=== PATIENT | female | born 1990 | race Caucasian/White ===

== ENCOUNTER 2016-10-23 02:26 | Emergency (ER) | payer SELFPAY ==
[~2016-10-23] VITALS: Ht 167.6 cm; Wt 113.4 kg
[2016-10-23 02:55] VITALS: BP 162/89
[2016-10-23 04:44] LABS: BASO % 0 % (0-3); EOS % 2 % (0-3); HEMATOCRIT 39.8 % (36.0-47.0); HEMOGLOBIN 12.4 g/dL (12.0-15.5); LYMPH # 3.8 x10^3/uL (1.0-4.8); LYMPH % 44 % (24-48); MEAN CORPUSCULAR HEMOGLOBIN 25 pg (25-35); MEAN CORPUSCULAR HGB CONC 31 g/dL (31-37); MEAN CORPUSCULAR VOLUME 80 fL (79-100); MONO % 13 % (0-9); NEUT % 41 % (31-73); PLATELET COUNT 173 x10^3/uL (140-400); RED BLOOD COUNT 4.95 x10^6/uL (3.50-5.40); RED CELL DISTRIBUTION WIDTH 16.1 % (11.5-14.5); WHITE BLOOD COUNT 8.8 x10^3/uL (4.0-11.0)
[2016-10-23] MEDS ORDERED: IV NORMAL SALINE 1000ML BAG 1,000 ML IV ONE (04:45)
[2016-10-23] MEDS ORDERED: DIPHENHYDRAMINE 50 MG/ML VIAL IVP ONE (04:45)
[2016-10-23] MEDS ORDERED: METOCLOPRAMIDE HCL 10 MG/2 ML VIAL. IV ONE (04:45)
[2016-10-23 04:50] LABS: BILIRUBIN,URINE NEGATIVE (NEG); GLUCOSE,URINE NEGATIVE (NEG); NITRITE,URINE NEGATIVE (NEG); PH,URINE 7.5; PROTEIN,URINE NEGATIVE (NEG-TRACE); UROBILINOGEN,URINE 0.2 mg/dL (0.2 mg/dL)
[2016-10-23 04:54] LABS: ANION GAP 4 (6-14); BLOOD UREA NITROGEN 11 mg/dL (7-20); CALCIUM 8.9 mg/dL (8.5-10.1); CARBON DIOXIDE 29 mmol/L (21-32); CHLORIDE 107 mmol/L (98-107); CREATININE 0.7 mg/dL (0.6-1.0); GFR 101.1; GLUCOSE 85 mg/dL (70-99); POTASSIUM 4.3 mmol/L (3.5-5.1); SODIUM 140 mmol/L (136-145)
[2016-10-23] MEDS ORDERED: DIPHENHYDRAMINE 50 MG/ML VIAL IM ONE (05:00)
[2016-10-23] MEDS ORDERED: METOCLOPRAMIDE HCL 10 MG/2 ML VIAL. IM ONE (05:00)
[2016-10-23 05:01] LABS: ALBUMIN 3.4 g/dL (3.4-5.0); ALK PHOS 73 U/L (46-116); ALT (SGPT) 17 U/L (14-59); AST (SGOT) 13 U/L (15-37); DIRECT BILIRUBIN < 0.1 mg/dL (0.0-0.2); TOTAL BILIRUBIN 0.1 mg/dL (0.2-1.0); TOTAL PROTEIN 6.9 g/dL (6.4-8.2)
[2016-10-23 05:09] LABS: BACTERIA,URINE FEW /HPF (0-FEW); RBC,URINE 0 /HPF (0-2); SQUAMOUS EPITHELIAL CELL,UR MOD /LPF
--- NOTE | 2016-10-23 07:09 | PHYS DOC ---
Past Medical History Past Medical History: No Pertinent History Past Surgical History: Other Additional Past Surgical Histo: D&C Alcohol Use: None Drug Use: None Adult General Chief Complaint Chief Complaint: MULTIPLE COMPLAINTS HPI HPI 26-year-old female with two primary complaints. Complaint number one headache. Headache is mild to moderate started today well at work. It is nonradiating. No alleviating or exacerbating factors present. She denies numbness weakness tingling. She denies vision changes. She denies neck stiffness. Complaint number two vaginal bleeding. This been present for approximately 3 weeks. She reports changes in her vaginal discharge and is concerned about possible STI. Review of systems is negative for nausea vomiting fevers chills chest pain shortness of breath. All other review of systems is negative. Review of Systems Review of Systems see above Current Medications Current Medications Current Medications Medications (Trade) Dose Ordered Sig/Yamil Start Time Stop Time Status Last Admin Dose Admin Diphenhydramine HCl (Benadryl) 50 mg 1X ONCE 10/23/16 05:00 10/23/16 05:08 DC 10/23/16 05:00 50 MG Metoclopramide HCl (Reglan) 20 mg 1X ONCE 10/23/16 05:00 10/23/16 05:09 DC 10/23/16 05:00 20 MG Sodium Chloride (Iv Sodium Chloride 0.9% 1000ml Bag) 1,000 ml @ 1,000 mls/hr 1X ONCE 10/23/16 04:45 10/23/16 05:44 DC Allergies Allergies Allergies Coded Allergies Type Severity Reaction Last Updated Verified No Known Drug Allergies 10/23/16 No Physical Exam Physical Exam Constitutional: Well developed, well nourished, no acute distress, non-toxic appearance. HENT: Normocephalic, atraumatic, bilateral external ears normal, oropharynx moist, no oral exudates, nose normal. [] Eyes: PERRLA, EOMI, conjunctiva normal, no discharge. [] Neck: Normal range of motion, no tenderness, supple, no stridor. [] Cardiovascular:Heart rate regular rhythm, no murmur [] Lungs & Thorax: Bilateral breath sounds clear to auscultation [] Abdomen: Bowel sounds normal, soft, no tenderness, no masses, no pulsatile masses. vaginal exam performed in the presence of the female nurse shows normal vaginal discharge without any evidence of cervical motion tenderness. Skin: Warm, dry, no erythema, no rash. [] Back: No tenderness, no CVA tenderness. [] Extremities: No tenderness, no cyanosis, no clubbing, ROM intact, no edema. [] Neurologic: Alert and oriented X 3, normal motor function, normal sensory function, no focal deficits noted. cranial nerves two through 12 intact. Psychologic: Affect normal, judgement normal, mood normal. [] Current Patient Data Vital Signs Vital Signs Date Time Temp Pulse Resp B/P Pulse Ox O2 Delivery O2 Flow Rate FiO2 10/23/16 02:55 98.7 88 18 162/89 99 Room Air 98.7 Lab Values Laboratory Tests Test 10/23/16 02:45 10/23/16 03:13 Urine Collection Type Unknown Urine Color Yellow Urine Clarity Clear Urine pH 7.5 Urine Specific [place] 1.025 Urine Protein Negativemg/dL (NEG-TRACE) Urine Glucose (UA) Negativemg/dL (NEG) Urine Ketones (Stick) Negativemg/dL (NEG) Urine Blood Negative (NEG) Urine Nitrite Negative (NEG) Urine Bilirubin Negative (NEG) Urine Urobilinogen Dipstick 0.2mg/dL (0.2 mg/dL) Urine Leukocyte Esterase Negative (NEG) Urine RBC 0/HPF (0-2) Urine WBC 1-4/HPF (0-4) Urine Squamous Epithelial Cells Mod/LPF Urine Bacteria Few/HPF (0-FEW) Urine Mucus Marked/LPF White Blood Count 8.8x10^3/uL (4.0-11.0) Red Blood Count 4.95x10^6/uL (3.50-5.40) Hemoglobin 12.4g/dL (12.0-15.5) Hematocrit 39.8% (36.0-47.0) Mean Corpuscular Volume 80fL (79-100) Mean Corpuscular Hemoglobin 25pg (25-35) Mean Corpuscular Hemoglobin Concent 31g/dL (31-37) Red Cell Distribution Width 16.1% (11.5-14.5) H Platelet Count 173x10^3/uL (140-400) Neutrophils (%) (Auto) 41% (31-73) Lymphocytes (%) (Auto) 44% (24-48) Monocytes (%) (Auto) 13% (0-9) H Eosinophils (%) (Auto) 2% (0-3) Basophils (%) (Auto) 0% (0-3) Neutrophils # (Auto) 3.6x10^3uL (1.8-7.7) Lymphocytes # (Auto) 3.8x10^3/uL (1.0-4.8) Monocytes # (Auto) 1.1x10^3/uL (0.0-1.1) Eosinophils # (Auto) 0.2x10^3/uL (0.0-0.7) Basophils # (Auto) 0.0x10^3/uL (0.0-0.2) Sodium Level 140mmol/L (136-145) Potassium Level 4.3mmol/L (3.5-5.1) Chloride Level 107mmol/L (98-107) Carbon Dioxide Level 29mmol/L (21-32) Anion Gap 4 (6-14) L Blood Urea Nitrogen 11mg/dL (7-20) Creatinine 0.7mg/dL (0.6-1.0) Estimated GFR (Cockcroft-Gault) 101.1 Glucose Level 85mg/dL (70-99) Calcium Level 8.9mg/dL (8.5-10.1) Total Bilirubin 0.1mg/dL (0.2-1.0) L Direct Bilirubin < 0.1mg/dL (0.0-0.2) Aspartate Amino Transferase (AST) 13U/L (15-37) L Alanine Aminotransferase (ALT) 17U/L (14-59) Alkaline Phosphatase 73U/L (46-116) Total Protein 6.9g/dL (6.4-8.2) Albumin 3.4g/dL (3.4-5.0) Lipase 108U/L (73-393) Laboratory Tests 10/23/16 03:13 Laboratory Tests 10/23/16 03:13 Microbiology 10/23/16 Wet Prep - Final, Complete EKG EKG [] Radiology/Procedures Radiology/Procedures [] Course & Med Decision Making Course & Med Decision Making Pertinent Labs and Imaging studies reviewed. (See chart for details) []26 real female presenting to the emergency Department with a headache and vaginal discharge concern for sexy transmitted infection. Vital signs unremarkable. Physical exam unremarkable. wet prep neg. exam not consistent with cervicitis. Headache treated with IV medications. On reevaluation she was feeling better and subsequent discharged home. Dragon Disclaimer Dragon Disclaimer This electronic medical record was generated, in whole or in part, using a voice recognition dictation system. Departure Departure Impression: Primary Impression: Headache Disposition: HOME, SELF-CARE Condition: STABLE Referrals: NO PCP (PCP) TOM RAMÍREZ MD Patient Instructions: General Headache Without Cause Additional Instructions: follow up with primary care in 2-3 days if your symptoms are not improving. SEAN NICOLAS MD Oct 23, 2016 07:09
== END 2016-10-23 07:28 | disposition home or self-care (01) ==
LOC: ER 02:26
DX: R51 Headache (principal); N93.9 Abnormal uterine and vaginal bleeding, unspecified; N89.8 Other specified noninflammatory disorders of vagina
CPT/HCPCS: 36415; 80048; 80076; 81001; 83690; 85027; 87491; 87591; 96372; 99284; J1200; J2765; Q0111

== ENCOUNTER 2019-03-20 10:42 | Emergency (ER) | payer MEDICAID ==
[~2019-03-20] VITALS: Ht 168.9 cm; Wt 127.0 kg
[2019-03-20 11:00] VITALS: BP 136/83
[2019-03-20] MEDS ORDERED: AMOX500C PO (11:13)
--- NOTE | 2019-03-20 11:14 | PHYS DOC ---
Past Medical History Past Medical History: No Pertinent History Past Surgical History: Other Additional Past Surgical Histo: D&C Alcohol Use: None Drug Use: None Adult General Chief Complaint Chief Complaint: SORE THROAT HPI HPI Patient is a 29 year old AA female who presents to the ER with complaints of a sore throat since this morning. She states that she was exposed to strep by a coworker late last week. Pt reports hot and cold flashes with sx and a tactile fever. She denies any ear pain, cough, shortness of breath, rash, nausea, vomiting, or abdominal pain. Currently her pain is a 5/10 on the pain scale there are no alleviating factors. She denies any difficulty swallowing. Review of Systems Review of Systems Constitutional: See HPI Eyes: Denies change redness, or eye pain [] HENT: Denies nasal congestion, See HPI Respiratory: Denies cough or shortness of breath [] Cardiovascular: No additional information not addressed in HPI [] GI: Denies abdominal pain, nausea, vomiting, bloody stools or diarrhea [] Musculoskeletal: Denies back pain or joint pain [] Integument: Denies rash Neurologic: Denies headache Complete systems were reviewed and found to be within normal limits, except as documented in this note. Allergies Allergies Allergies Coded Allergies Type Severity Reaction Last Updated Verified No Known Drug Allergies 10/23/16 No Physical Exam Physical Exam Constitutional: Well developed, well nourished, no acute distress, non-toxic appearance, obese. [] HENT: Normocephalic, atraumatic, bilateral external ears normal, bilateral cerumen impactions, oropharynx moist, nose normal; 2+ tonsils bilat with exudate noted and erythema of posterior pharynx Eyes: PERRLA, conjunctiva normal, no discharge. [] Neck: Normal range of motion, no tenderness, no stridor; anterior cervical chain lymphadenopathy bilat Cardiovascular:Heart rate regular rhythm, no murmur [] Lungs & Thorax: Bilateral breath sounds clear to auscultation [] Skin: Warm, dry, no erythema, no rash. [] Extremities: No cyanosis, ROM intact Neurologic: Alert and oriented X 3, no focal deficits noted. [] Psychologic: Affect normal, judgement normal, mood normal. [] Current Patient Data Vital Signs Vital Signs Date Time Temp Pulse Resp B/P (MAP) Pulse Ox O2 Delivery O2 Flow Rate FiO2 03/20/19 10:50 98.3 95 16 149/87 (107) 97 Room Air 98.3 EKG EKG [] Radiology/Procedures Radiology/Procedures [] Course & Med Decision Making Course & Med Decision Making Pertinent Labs and Imaging studies reviewed. (See chart for details) Dx: strep pharyngitis Centor score 3, physical exam suggestive of strep pharyngitis. pt given 10 mg PO decadron in the ER. prescription written for amoxicillin. recommend warm salt water swishes prn, off work x2 days. Follow up with PCP in 1-2 days if no better, return to the ER if sx worsen Patient verbalized an understanding of home care, medications, follow-up, and return to ED instructions and was in agreement with the plan of care. Dragon Disclaimer Dragon Disclaimer This electronic medical record was generated, in whole or in part, using a voice recognition dictation system. Departure Departure Impression: Primary Impression: Acute streptococcal pharyngitis Disposition: HOME, SELF-CARE Condition: STABLE Referrals: UNKNOWN PCP NAME (PCP) Patient Instructions: Strep Throat, [id number] Additional Instructions: Fill prescription and use as directed. Recommend warm salt water gargles as needed for relief of discomfort. Alternate Tylenol and ibuprofen as needed for fever/pain. Discard your toothbrush tomorrow and begin using a new toothbrush tomorrow. Follow-up with primary care doctor if symptoms persist. Return to the ER if symptoms worsen. Scripts Amoxicillin (AMOXICILLIN) 500 Mg Capsule 1 CAP PO BID for 10 Days, #20 CAP 0 Refills Prov: ARIK CHENG DATA TRANSCRIBER 03/20/19 ARIK CHENG DATA TRANSCRIBER Mar 20, 2019 11:14
[2019-03-20] MEDS ORDERED: DEXAMETHASONE SOD PHOS 20 MG/5 ML VIAL. PO ONE (11:15)
== END 2019-03-20 11:18 | disposition home or self-care (01) ==
LOC: ER 10:42
DX: J02.0 Streptococcal pharyngitis (principal); B95.5 Unspecified streptococcus as the cause of diseases classified elsewhere
CPT/HCPCS: 99283; J1100

== ENCOUNTER 2019-06-25 18:22 | Emergency (ER) | payer MEDICAID ==
[~2019-06-25] VITALS: Ht 170.2 cm; Wt 120.2 kg
[~2019-06-25 18:22] MED LIST: AMOX500C PO
[2019-06-25 19:20] LABS: BILIRUBIN,URINE SMALL (NEG); CLARITY,URINE CLOUDY; COLOR,URINE AMBER; NITRITE,URINE NEGATIVE (NEG); PROTEIN,URINE 100 mg/dL (NEG-TRACE); UROBILINOGEN,URINE 0.2 mg/dL (0.2 mg/dL)
[2019-06-25 19:32] LABS: RBC,URINE OCC /HPF (0-2)
[2019-06-25 19:33] LABS: BACTERIA,URINE MANY /HPF (0-FEW); SQUAMOUS EPITHELIAL CELL,UR MANY /LPF
[2019-06-25] MEDS ORDERED: IV NORMAL SALINE 1000ML BAG 1,000 ML IV ONE (20:15)
[2019-06-25] MEDS ORDERED: ONDANSETRON PF 4 MG/2 ML VIAL. IVP ONE (20:15)
[2019-06-25] MEDS ORDERED: MORPHINE SULFATE 10 MG/ML VIAL. IV ONE (20:30)
[2019-06-25 20:53] LABS: BASO % 1 % (0-3); EOS % 0 % (0-3); HEMATOCRIT 44.2 % (36.0-47.0); HEMOGLOBIN 14.9 g/dL (12.0-15.5); LYMPH # 2.2 x10^3/uL (1.0-4.8); LYMPH % 21 % (24-48); MEAN CORPUSCULAR HEMOGLOBIN 28 pg (25-35); MEAN CORPUSCULAR HGB CONC 34 g/dL (31-37); MEAN CORPUSCULAR VOLUME 82 fL (79-100); MONO # 1.2 x10^3/uL (0.0-1.1); MONO % 12 % (0-9); NEUT # 6.7 x10^3/uL (1.8-7.7); NEUT % 66 % (31-73); PLATELET COUNT 252 x10^3/uL (140-400); RED BLOOD COUNT 5.41 x10^6/uL (3.50-5.40); RED CELL DISTRIBUTION WIDTH 14.1 % (11.5-14.5); WHITE BLOOD COUNT 10.2 x10^3/uL (4.0-11.0)
--- NOTE | 2019-06-25 21:03 | RAD ---
OB ultrasound less than 14 weeks and transvaginal OB ultrasound HISTORY: One day of abdominal pain and vomiting Sonographic examination of the was performed by transabdominal and endovaginal technique. Multiple static images were obtained. OB ultrasound is 14 weeks transvaginal: Uterus is not well seen. Transvaginal ultrasound : The uterus is retroverted. The maternal cervix appears normal measures 3.5 centers in length. There is a gestational sac in the uterus may be a faint yolk sac. There is no pole seen. There is minimal free fluid. There is a corpus sagittal cyst in the right ovary that measures 1.7 x 1.8 x 1.3 cm. The right ovary measures 4.0 x 2.0 x 2.2 cm and has normal blood flow. The left ovary appears normal with normal blood flow measures 2.1 x 1.0 x 1.4 cm. The LMP of 05/18/2019 corresponds to 5 week 3 day gestational age and estimated date of confinement of February 22, 2020. Estimated size by ultrasound is 5 weeks 2 days estimated confinement February 23, 2020. IMPRESSION: Probable less than 6 week gestational age . A yolk sac is not seen definitively and there is no pole and therefore a short-term follow-up ultrasound is recommended after the patient is at least 6 weeks in order to document an intrauterine and thereby exclude ectopic . Electronically signed by: Yeison Tolliver III, MD (06/25/2019 9:00 PM) [facility]
[2019-06-25 21:06] LABS: ALBUMIN 4.5 g/dL (3.4-5.0); ALBUMIN/GLOBULIN RATIO 0.8 (1.0-1.7); CALCIUM 10.3 mg/dL (8.5-10.1); CREATININE 0.9 mg/dL (0.6-1.0); TOTAL BILIRUBIN 0.5 mg/dL (0.2-1.0); TOTAL PROTEIN 9.9 g/dL (6.4-8.2)
[2019-06-25 21:08] LABS: POTASSIUM 2.8 mmol/L (3.5-5.1)
[2019-06-25] MEDS ORDERED: POTASSIUM CHLORIDE 20 MEQ TABLET.ER. PO ONE (21:30)
--- NOTE | 2019-06-25 22:03 | PHYS DOC ---
Past Medical History Past Medical History: No Pertinent History Past Surgical History: Other Additional Past Surgical Histo: D&C Alcohol Use: Rarely Drug Use: Marijuana Adult General Chief Complaint Chief Complaint: ABDOMINAL PAIN HPI HPI Patient is a 29 year old female with no significant medical history who presents to the ED today complaining of 10 out of 10 generalized abdominal pain with nausea and vomiting that began yesterday. Patient describes the pain as sharp and intermittent. Denies any chance she is . Denies any fever. Denies any diarrhea. Review of Systems Review of Systems Constitutional: Denies fever or chills [] Eyes: Denies change in visual acuity, redness, or eye pain [] HENT: Denies nasal congestion or sore throat [] Respiratory: Denies cough or shortness of breath [] Cardiovascular: No additional information not addressed in HPI [] GI: Reports generalized abdominal pain with nausea and vomiting, denies bloody stools or diarrhea [] : Denies dysuria or hematuria [] Musculoskeletal: Denies back pain or joint pain [] Integument: Denies rash or skin lesions [] Neurologic: Denies headache, focal weakness or sensory changes [] All other systems were reviewed and found to be within normal limits, except as documented in this note. Current Medications Current Medications Current Medications Medications (Trade) Dose Ordered Sig/Yamil Start Time Stop Time Status Last Admin Dose Admin Morphine Sulfate (Morphine Sulfate) 5 mg 1X ONCE 06/25/19 20:30 06/25/19 20:31 DC 06/25/19 21:04 5 MG Ondansetron HCl (Zofran) 4 mg 1X ONCE 06/25/19 20:15 06/25/19 20:16 DC 06/25/19 20:59 4 MG Potassium Chloride (Klor-Con) 40 meq 1X ONCE 06/25/19 21:30 06/25/19 21:31 DC 06/25/19 21:46 40 MEQ Sodium Chloride 1,000 ml @ 1,000 mls/hr 1X ONCE 06/25/19 20:15 06/25/19 21:14 DC 06/25/19 21:05 1,000 MLS/HR Allergies Allergies Allergies Coded Allergies Type Severity Reaction Last Updated Verified No Known Drug Allergies 10/23/16 No Physical Exam Physical Exam Constitutional: Well developed, well nourished, no acute distress, non-toxic appearance. [] HENT: Normocephalic, atraumatic, bilateral external ears normal, oropharynx moist, no oral exudates, nose normal. [] Eyes: PERRLA, EOMI, conjunctiva normal, no discharge. [] Neck: Normal range of motion, no tenderness, supple, no stridor. [] Cardiovascular:Heart rate regular rhythm, no murmur [] Lungs & Thorax: Bilateral breath sounds clear to auscultation [] Abdomen: Patient is actively vomiting. Bowel sounds normal, soft, diffuse tenderness throughout the abdomen, no masses, no pulsatile masses. [] Skin: Warm, dry, no erythema, no rash. [] Back: No tenderness, no CVA tenderness. [] Extremities: No tenderness, no cyanosis, no clubbing, ROM intact, no edema. [] Neurologic: Alert and oriented X 3, normal motor function, normal sensory function, no focal deficits noted. [] Psychologic: Patient is thrashing around in bed Current Patient Data Vital Signs Vital Signs Date Time Temp Pulse Resp B/P (MAP) Pulse Ox O2 Delivery O2 Flow Rate FiO2 06/25/19 21:04 18 98 Room Air 06/25/19 19:45 98.5 98 159/90 (113) 98.5 Lab Values Laboratory Tests Test 06/25/19 19:05 06/25/19 19:14 06/25/19 20:45 Urine Collection Type Unknown Urine Color [place] Urine Clarity Cloudy Urine pH 6.0 Urine Specific [place] 1.025 Urine Protein 100 mg/dL (NEG-TRACE) Urine Glucose (UA) Negative mg/dL (NEG) Urine Ketones (Stick) 15 mg/dL (NEG) Urine Blood Negative (NEG) Urine Nitrite Negative (NEG) Urine Bilirubin Small (NEG) Urine Urobilinogen Dipstick 0.2 mg/dL (0.2 mg/dL) Urine Leukocyte Esterase Negative (NEG) Urine RBC Occ /HPF (0-2) Urine WBC 5-10 /HPF (0-4) Urine Squamous Epithelial Cells Many /LPF Urine Bacteria Many /HPF (0-FEW) Urine Mucus Marked /LPF POC Urine HCG, Qualitative Hcg positive (Negative) White Blood Count 10.2 x10^3/uL (4.0-11.0) Red Blood Count 5.41 x10^6/uL (3.50-5.40) H Hemoglobin 14.9 g/dL (12.0-15.5) Hematocrit 44.2 % (36.0-47.0) Mean Corpuscular Volume 82 fL (79-100) Mean Corpuscular Hemoglobin 28 pg (25-35) Mean Corpuscular Hemoglobin Concent 34 g/dL (31-37) Red Cell Distribution Width 14.1 % (11.5-14.5) Platelet Count 252 x10^3/uL (140-400) Neutrophils (%) (Auto) 66 % (31-73) Lymphocytes (%) (Auto) 21 % (24-48) L Monocytes (%) (Auto) 12 % (0-9) H Eosinophils (%) (Auto) 0 % (0-3) Basophils (%) (Auto) 1 % (0-3) Neutrophils # (Auto) 6.7 x10^3/uL (1.8-7.7) Lymphocytes # (Auto) 2.2 x10^3/uL (1.0-4.8) Monocytes # (Auto) 1.2 x10^3/uL (0.0-1.1) H Eosinophils # (Auto) 0.0 x10^3/uL (0.0-0.7) Basophils # (Auto) 0.0 x10^3/uL (0.0-0.2) Maternal Serum HCG Beta Subunit 2329 mIU/mL (0-5) H Sodium Level 142 mmol/L (136-145) Potassium Level 2.8 mmol/L (3.5-5.1) *L Chloride Level 100 mmol/L (98-107) Carbon Dioxide Level 28 mmol/L (21-32) Anion Gap 14 (6-14) Blood Urea Nitrogen 15 mg/dL (7-20) Creatinine 0.9 mg/dL (0.6-1.0) Estimated GFR (Cockcroft-Gault) 74.0 BUN/Creatinine Ratio 17 (6-20) Glucose Level 119 mg/dL (70-99) H Calcium Level 10.3 mg/dL (8.5-10.1) H Total Bilirubin 0.5 mg/dL (0.2-1.0) Aspartate Amino Transferase (AST) 13 U/L (15-37) L Alanine Aminotransferase (ALT) 17 U/L (14-59) Alkaline Phosphatase 89 U/L (46-116) Total Protein 9.9 g/dL (6.4-8.2) H Albumin 4.5 g/dL (3.4-5.0) Albumin/Globulin Ratio 0.8 (1.0-1.7) L Lipase 42 U/L (73-393) L Laboratory Tests 06/25/19 20:45 Laboratory Tests 06/25/19 20:45 EKG EKG [] Radiology/Procedures Radiology/Procedures []PROCEDURE: OB <14 WKS W/TV OB ultrasound less than 14 weeks and transvaginal OB ultrasound HISTORY: One day of abdominal pain and vomiting Sonographic examination of the was performed by transabdominal and endovaginal technique. Multiple static images were obtained. OB ultrasound is 14 weeks transvaginal: Uterus is not well seen. Transvaginal ultrasound : The uterus is retroverted. The maternal cervix appears normal measures 3.5 centers in length. There is a gestational sac in the uterus may be a faint yolk sac. There is no pole seen. There is minimal free fluid. There is a corpus sagittal cyst in the right ovary that measures 1.7 x 1.8 x 1.3 cm. The right ovary measures 4.0 x 2.0 x 2.2 cm and has normal blood flow. The left ovary appears normal with normal blood flow measures 2.1 x 1.0 x 1.4 cm. The LMP of 05/18/2019 corresponds to 5 week 3 day gestational age and estimated date of confinement of February 22, 2020. Estimated size by ultrasound is 5 weeks 2 days estimated confinement February 23, 2020. IMPRESSION: Probable less than 6 week gestational age . A yolk sac is not seen definitively and there is no pole and therefore a short-term follow-up ultrasound is recommended after the patient is at least 6 weeks in order to document an intrauterine and thereby exclude ectopic . Electronically signed by: Jerod Tolliver III, MD (06/25/2019 9:00 PM) [facility] DICTATED and SIGNED BY: JEROD TOLLIVER III, MD DATE: 06/25/19 2100 Course & Med Decision Making Course & Med Decision Making Pertinent Labs and Imaging studies reviewed. (See chart for details) This is a 29-year-old. Patient presenting to the ED today complaining of generalized abdominal pain with nausea and vomiting that began yesterday. Positive urine hCG. This will be her third . Patient not happy within use. CBC with normal WBC, urine analysis is negative for infection, CMP with potassium of 2.8. Patient was given oral potassium replacement in the ED. Beta hCG 2329 OB ultrasound noted for a yolk sac with no pole probable less than 6 week gestational age . Short-term follow-up ultrasound recommended. Patient was given IV fluids and Zofran. Feeling better. Discharged with Zofran, provided OB for follow-up. Dragon Disclaimer Dragon Disclaimer This electronic medical record was generated, in whole or in part, using a voice recognition dictation system. Departure Departure Impression: Primary Impression: Abdominal pain during Additional Impressions: Hypokalemia Disposition: 01 HOME, SELF-CARE Condition: STABLE Referrals: NO PCP (PCP) KASEY STOKES MD follow up with your OBGYN in 3-7 days Patient Instructions: ABCs of , Abdominal Pain During , Hypokalemia-Brief Additional Instructions: You were evaluated in the emergency room and noted to be . We provided you an DEPARTMENT MGR, start following up as soon as possible. Take the prescribed nausea medicine as needed. We gave you potassium for 1 day, take the medicine tomorrow morning. Scripts Potassium Chloride (POTASSIUM CHLORIDE) 20 Meq Tablet.er 1 TAB PO DAILY for 30 Days, #1 TAB 0 Refills Prov: STARR JENKINS APRN 06/25/19 Ondansetron (ONDANSETRON ODT) 4 Mg Tab.rapdis 1 TAB PO PRN Q6-8HRS, #30 TAB Prov: STARR JENKINS APRN 06/25/19 Problem Qualifiers Primary Impression: Abdominal pain during Trimester: first trimester Qualified Codes: O26.891 - Other specified related conditions, first trimester; R10.9 - Unspecified abdominal pain Additional Impressions: Weeks of gestation: less than 8 weeks Qualified Codes: Z3A.01 - Less than 8 weeks gestation of STARR JENKINS APRN Jun 25, 2019 22:03
[2019-06-25 22:15] VITALS: BP 158/92
[2019-06-25] MEDS ORDERED: ONDA4TAB12 PO (22:16)
[2019-06-25] MEDS ORDERED: POTA20TA82 PO (22:16)
== END 2019-06-25 22:23 | disposition home or self-care (01) ==
LOC: ER 18:22
DX: O99.281 Endocrine, nutritional and metabolic diseases complicating pregnancy, first trimester (principal); E87.6 Hypokalemia; O21.8 Other vomiting complicating pregnancy; R10.84 Generalized abdominal pain; Z3A.01 Less than 8 weeks gestation of pregnancy
CPT/HCPCS: 36415; 76801; 76817; 80053; 81001; 81025; 83690; 84702; 85025; 87086; 96361; 96374; 96375; 99285; J2270; J2405; J7030

== ENCOUNTER 2019-08-15 10:07 | Emergency (ER) | payer SELFPAY ==
[~2019-08-15] VITALS: Ht 170.2 cm; Wt 117.5 kg
[~2019-08-15 10:07] MED LIST changes: +ONDA4TAB12 PO; +POTA20TA4 PO
[2019-08-15 12:00] VITALS: BP 105/60
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
== END 2019-08-15 12:22 | disposition home or self-care (01) ==
LOC: ER 10:07
DX: O9A.211 Injury, poisoning and certain other consequences of external causes complicating pregnancy, first trimester (principal); R10.30 Lower abdominal pain, unspecified; O21.9 Vomiting of pregnancy, unspecified; O16.1 Unspecified maternal hypertension, first trimester; Z3A.12 12 weeks gestation of pregnancy; V48.0XXA Car driver injured in noncollision transport accident in nontraffic accident, initial encounter; Y93.89 Activity, other specified; Y92.481 Parking lot as the place of occurrence of the external cause; Y99.8 Other external cause status
CPT/HCPCS: 76801; 81025; 99284